=== PATIENT | male | born 1980 ===

== ENCOUNTER 2024-06-27 08:31 | Outpatient (CLI) | payer OTHER | END 2024-06-27 08:32 | disposition home or self-care (01) | LOC: CSHSLEEP 08:31 | PROVIDERS: ATTEND Otolaryngology Otolaryngic Allergy | DX: G47.33 Obstructive sleep apnea (adult) (pediatric) (principal); R53.83 Other fatigue; R06.83 Snoring | CPT/HCPCS: 95810 ==